=== PATIENT | female | born 1955 | race American Indian/Alaskan Native ===

== ENCOUNTER 2021-05-22 11:17 | Emergency (ER) | payer MEDICARE, OTHER ==
--- NOTE | 2021-05-22 12:46 | Cat Scan Report ---
CT HEAD WITHOUT CONTRAST INDICATION / CLINICAL INFORMATION: fall. TECHNIQUE: All CT scans at this location are performed using CT dose reduction for ALARA by means of automated exposure control. COMPARISON: None available. FINDINGS: BRAIN PARENCHYMA: No acute intracranial hemorrhage. No evidence of recent infarct. No mass effect or midline shift. White matter chronic small vessel ischemic changes. VENTRICULAR SYSTEM/EXTRA-AXIAL SPACES: Ventricles are normal for age. No extra-axial fluid collection . ORBITS: Normal as visualized. SKELETAL SYSTEM/SOFT TISSUES: Normal bones and soft tissues. PARANASAL SINUSES/MASTOID AIR CELLS: No significant abnormality. ADDITIONAL FINDINGS: None. IMPRESSION: 1. No acute intracranial abnormality. Signer Name: Ranjan Newell MD Signed: 05/22/2021 12:42 PM Workstation Name: [id number]
--- NOTE | 2021-05-22 13:11 | Emergency Department Report ---
Head Injury w/o Laceration - HPI Chief Complaint: Fall Stated Complaint: FALL/BODY PAIN Time Seen by Provider: 05/22/21 12:02 Occurred When: Today Mechanism: Fall Location: Occipital Severity: mild Head Inj w/o Lac: Yes Headache, No Loss of Consciousness, No Nausea, No Blurred Vision, No Altered Mental Status ED General PMH - Past Medical History General Medical History: no medical history - Family History Significant Family History: no pertinent family hx - Social History Smoking Status: Never Smoker Head Injury W/O Lac Exam - Exam General: Vital signs noted. No distress. Alert and acting appropriately. Head: Yes Pupils are PERRL, No Hemotympanum, No Hematoma/Ecchymosis, No Epistaxis, No Stepoff/Deformity, No Laceration, No Abrasion Chest, Abd, & Ext: Yes Clear Lung Sounds, Yes Regular Heart Rhythm, No Neck Pain, No Chest Injury/Pain, No Heart Murmur, No Abdominal Tenderness, No Back Tenderness, No Extremity Injury Neuroligical (Head Inj W/O Lac: Yes Normal Speech, Yes Normal Gait, No Lethargy, No Disorientation, No Focal Numbness, No Focal Weakness ED Disposition Clinical Impression: Fall, Head injury Disposition: 01 HOME / SELF CARE / HOMELESS Is pt being admited?: No Does the pt Need Aspirin: No Condition: Stable Instructions: How to Use Cold Therapy, [id number]
[2021-05-22 13:49] VITALS: BP 156/87
== END 2021-05-22 14:09 | disposition home or self-care (01) ==
LOC: ED 11:17
DX: S09.90XA Unspecified injury of head, initial encounter (principal); W19.XXXA Unspecified fall, initial encounter; Y93.89 Activity, other specified; Y92.89 Other specified places as the place of occurrence of the external cause; Y99.8 Other external cause status
CPT/HCPCS: 70450; 99284